=== PATIENT | male | born 1980 | race African-American/Black ===

== ENCOUNTER 2021-09-29 12:12 | Emergency (ER) | payer BC, OTHER ==
[2021-09-30 15:39] LABS: SARS-CoV-2 PCR by NAA Not Detected (NotDetected)
== END 2021-09-29 13:53 | disposition home or self-care (01) ==
LOC: CSHERS 12:12
DX: J06.9 Acute upper respiratory infection, unspecified (principal); Z20.822 Contact with and (suspected) exposure to COVID-19; I10 Essential (primary) hypertension
CPT/HCPCS: 87804; 99283; U0003; U0005

== ENCOUNTER 2021-10-02 12:27 | Emergency (ER) | payer OTHER ==
[2021-10-02] MEDS ORDERED: Ibuprofen 200 MG TAB ONE (13:17)
== END 2021-10-02 13:17 | disposition home or self-care (01) ==
LOC: CSHERS 12:27
DX: H60.91 Unspecified otitis externa, right ear (principal)
CPT/HCPCS: 99283

== ENCOUNTER 2021-10-03 12:48 | Emergency (ER) | payer BC, OTHER ==
[2021-10-03 14:39] LABS: Bilirubin Neg (Negative); Blood, Urine 250 (Negative); Clarity Cloudy (Clear); Glucose, Urine (Dipstick) 50 mg/dL (Negative); Ketone, Urine 5 mg/dL (Negative); Leukocyte 100 (Negative); Nitrite Negative (Negative); Protein, Urine (Dipstick) 30 mg/dl (Neg-Trace)
[2021-10-03 14:55] LABS: Squamous Epithelial 0-3 HPF (0-3)
[2021-10-03 14:56] LABS: Bacteria/HPF Rare-Few HPF (None Seen)
[2021-10-03 15:43] LABS: #Basophils 0.1 10x3/uL (0.0-0.2); #Eosinphils 0.2 10x3/uL (0.0-0.5); #Monocytes 1.5 10x3/uL (0.0-1.1); %Basophils 0.3 % (0.0-2.0); %Eosinophils 1.2 % (0.0-6.0); %Lymphocytes 15.2 % (18.0-47.0); %Monocytes 9.1 % (0.0-10.0); %Neutrophils 73.8 % (40.0-75.0); Hemoglobin 14.2 g/dL (13.5-17.5); Mean Corpuscular HGB CONC 31.9 g/dL (32.0-36.0); Mean Corpuscular Hemoglobin 26.8 pg (27.0-33.0); Mean Platelet Volume 9.2 fl (7.4-10.4); Platelet Count 366 10x3/uL (150-450); RBC Distribution Width 13.8 % (11.5-14.5); White Blood Cell (WBC) Count 16.2 10x3/uL (3.5-10.5)
[2021-10-03 15:55] LABS: ALT (SGPT) 29 U/L (8-55); AST (SGOT) 23 U/L (5-34); Albumin 4.6 g/dL (3.5-5.0); Alkaline Phosphatase 75 U/L (40-110); Anion Gap 14 mmol/L (10-20); BUN (Urea Nitrogen) 13 mg/dL (8.9-20.6); Bilirubin, Total 0.5 mg/dL (0.2-1.2); Calc. Creatinine Clearance 0 mL/min (70-130); Calcium 9.6 mg/dL (7.8-10.44); Carbon Dioxide 25 mmol/L (22-29); Chloride 103 mmol/L (98-107); Globulin 4.2 g/dL (2.4-3.5); Glucose 107 mg/dL (70-105); Potassium 3.9 mmol/L (3.5-5.1); Protein, Total 8.8 g/dL (6.0-8.3); Sodium 138 mmol/L (136-145)
[2021-10-03] MEDS ORDERED: Ondansetron PF 4 MG/2 ML Vial ONE (16:04)
[2021-10-03] MEDS ORDERED: Ketorolac Tromethamine 30 MG/ML VIAL ONE (16:36)
== END 2021-10-03 18:16 | disposition home or self-care (01) ==
LOC: CSHERS 12:48
DX: R31.9 Hematuria, unspecified (principal); N20.0 Calculus of kidney; I10 Essential (primary) hypertension
CPT/HCPCS: 74176; 80053; 81003; 81015; 85025; 87086; 96374; 96375; J1885; J2405

== ENCOUNTER 2022-11-23 09:30 | Emergency (ER) | payer MEDICARE, OTHER ==
[2022-11-23] MEDS ORDERED: Dexamethasone 10 MG/ML VIAL ONE (10:29)
== END 2022-11-23 12:41 | disposition home or self-care (01) ==
LOC: CSHERS 09:30
DX: J02.8 Acute pharyngitis due to other specified organisms (principal); B34.9 Viral infection, unspecified; I10 Essential (primary) hypertension; E11.9 Type 2 diabetes mellitus without complications; Z79.899 Other long term (current) drug therapy
CPT/HCPCS: 87081; 87430; 99283; J1100

== ENCOUNTER 2023-01-19 09:59 | Emergency (ER) | payer OTHER ==
[2023-01-19] MEDS ORDERED: Morphine 4 MG/ML VIAL ONE (10:35)
[2023-01-19] MEDS ORDERED: Ketorolac Tromethamine 30 MG/ML VIAL ONE (10:36)
[2023-01-19] MEDS ORDERED: Ondansetron PF 4 MG/2 ML Vial ONE (10:36)
[2023-01-19 11:06] LABS: #Eosinphils 0.2 10x3/uL (0.0-0.5); #Monocytes 0.5 10x3/uL (0.0-1.1); #Neutrophils 6.1 10x3/uL (1.5-8.4); %Basophils 0.3 % (0.0-2.0); %Eosinophils 1.8 % (0.0-6.0); %Lymphocytes 24.2 % (18.0-47.0); %Monocytes 5.9 % (0.0-10.0); %Neutrophils 67.4 % (40.0-75.0); Hemoglobin 13.6 g/dL (13.5-17.5); Mean Corpuscular HGB CONC 32.9 g/dL (32.0-36.0); Mean Corpuscular Hemoglobin 27.1 pg (27.0-33.0); Mean Corpuscular Volume 82.3 fl (81.2-95.1); Mean Platelet Volume 9.7 fl (7.4-10.4); Platelet Count 326 10x3/uL (150-450); RBC Distribution Width 14.8 % (11.5-14.5); Red Blood Cell (RBC) Count 5.02 10x6/uL (4.32-5.72)
[2023-01-19 11:25] LABS: ALT (SGPT) 27 U/L (8-55); AST (SGOT) 16 U/L (5-34); Albumin 4.1 g/dL (3.5-5.0); Alkaline Phosphatase 66 U/L (40-110); Anion Gap 16 mmol/L (10-20); BUN (Urea Nitrogen) 15 mg/dL (8.9-20.6); Bilirubin, Total 0.7 mg/dL (0.2-1.2); Calc. Creatinine Clearance 0 mL/min (70-130); Calcium 8.8 mg/dL (7.8-10.44); Carbon Dioxide 22 mmol/L (22-29); Chloride 105 mmol/L (98-107); Estimated GFR 91; Globulin 3.3 g/dL (2.4-3.5); Glucose 144 mg/dL (70-105); Lipase 36 U/L (8-78); Potassium 3.8 mmol/L (3.5-5.1); Protein, Total 7.4 g/dL (6.0-8.3); Sodium 139 mmol/L (136-145)
[2023-01-19 12:53] LABS: Bilirubin Neg (Negative); Blood, Urine 250 (Negative); Glucose, Urine (Dipstick) Normal (Negative); Ketone, Urine 5 mg/dL (Negative); Leukocyte 25 (Negative); Nitrite Negative (Negative); Protein, Urine (Dipstick) 100 mg/dl (Neg-Trace); Specific Gravity, Urine 1.025 (1.005-1.030); Urobilinogen Normal mg/dL (Less than 2)
[2023-01-19 13:15] LABS: Clarity Turbid (Clear)
[2023-01-19] MEDS ORDERED: cefTRIAXone (ROCEPHIN) 500 MG VIAL ONE (13:17)
[2023-01-19 13:19] LABS: RBC/HPF Greater than 50 HPF (0-3)
[2023-01-19 13:21] LABS: Bacteria/HPF 2+ HPF (None Seen)
[2023-01-19 13:26] LABS: Mucous/LPF 2+ LPF (<2+)
== END 2023-01-19 13:20 | disposition home or self-care (01) ==
LOC: CSHERS 09:59
DX: N45.1 Epididymitis (principal); I10 Essential (primary) hypertension; E11.9 Type 2 diabetes mellitus without complications; Z79.899 Other long term (current) drug therapy; Z79.84 Long term (current) use of oral hypoglycemic drugs
CPT/HCPCS: 76870; 80053; 81003; 81015; 83690; 85025; 87086; 93976; 96374; 96375; J0696; J1885; J2270; J2405

== ENCOUNTER 2023-05-11 19:06 | Emergency (ER) | payer OTHER ==
[~2023-05-11 19:06] MED LIST: Iopamidol 300 61% 100 ML VIAL FS ONE
[2023-05-11 19:49] LABS: #Basophils 0.1 10x3/uL (0.0-0.2); #Monocytes 0.7 10x3/uL (0.0-1.1); #Neutrophils 12.3 10x3/uL (1.5-8.4); %Basophils 0.3 % (0.0-2.0); %Eosinophils 0.3 % (0.0-6.0); %Lymphocytes 12.5 % (18.0-47.0); %Monocytes 4.7 % (0.0-10.0); %Neutrophils 81.7 % (40.0-75.0); Hematocrit 43.2 % (38.8-50.0); Hemoglobin 14.3 g/dL (13.5-17.5); Mean Corpuscular HGB CONC 33.1 g/dL (32.0-36.0); Mean Corpuscular Hemoglobin 26.7 pg (27.0-33.0); Mean Corpuscular Volume 80.6 fl (81.2-95.1); Mean Platelet Volume 9.7 fl (7.4-10.4); Platelet Count 391 10x3/uL (150-450); RBC Distribution Width 13.2 % (11.5-14.5); Red Blood Cell (RBC) Count 5.36 10x6/uL (4.32-5.72)
[2023-05-11] MEDS ORDERED: Ondansetron PF 4 MG/2 ML Vial ONE (19:53)
[2023-05-11] MEDS ORDERED: Morphine 4 MG/ML VIAL ONE ×2 (19:53→21:19)
[2023-05-11] MEDS ORDERED: Ketorolac Tromethamine 30 MG/ML VIAL ONE (19:53)
[2023-05-11 20:09] LABS: ALT (SGPT) 21 U/L (8-55); AST (SGOT) 17 U/L (5-34); Albumin 4.4 g/dL (3.5-5.0); Alkaline Phosphatase 76 U/L (40-110); Anion Gap 19 mmol/L (10-20); BUN (Urea Nitrogen) 13 mg/dL (8.9-20.6); Bilirubin, Total 0.6 mg/dL (0.2-1.2); Calc. Creatinine Clearance 0 mL/min (70-130); Calcium 9.3 mg/dL (7.8-10.44); Carbon Dioxide 20 mmol/L (22-29); Chloride 105 mmol/L (98-107); Estimated GFR 61; Globulin 3.8 g/dL (2.4-3.5); Glucose 158 mg/dL (70-105); Lipase 11 U/L (8-78); Potassium 3.6 mmol/L (3.5-5.1); Protein, Total 8.2 g/dL (6.0-8.3); Sodium 140 mmol/L (136-145)
[2023-05-11 20:11] LABS: Bilirubin Neg (Negative); Blood, Urine 250 (Negative); Clarity Clear (Clear); Glucose, Urine (Dipstick) 50 mg/dL (Negative); Ketone, Urine Negative (Negative); Leukocyte Negative (Negative); Nitrite Negative (Negative); Protein, Urine (Dipstick) 30 mg/dl (Neg-Trace); Specific Gravity, Urine 1.025 (1.005-1.030); Urobilinogen Normal mg/dL (Less than 2)
[2023-05-11 20:23] LABS: Bacteria/HPF Rare-Few HPF (None Seen); CAUTI Indications for Culture Dysuria,urgency,freq; RBC/HPF 0-3 HPF (0-3); WBC/HPF 0-3 HPF (0-3)
[2023-05-11 20:25] LABS: Urine Culture Reflex No No
== END 2023-05-11 21:33 | disposition home or self-care (01) ==
LOC: CSHERS 19:06
DX: N20.1 Calculus of ureter (principal); E11.9 Type 2 diabetes mellitus without complications; I10 Essential (primary) hypertension; Z79.84 Long term (current) use of oral hypoglycemic drugs
CPT/HCPCS: 74177; 80053; 81001; 83690; 85025; 96374; 96375; 96376; J1885; J2270; J2405; Q9967

== ENCOUNTER 2023-06-15 02:26 | Emergency (ER) | payer OTHER ==
[2023-06-15] MEDS ORDERED: Ketorolac Tromethamine 30 MG/ML VIAL ONE (03:17)
[2023-06-15] MEDS ORDERED: Ondansetron PF 4 MG/2 ML Vial ONE (03:17)
[2023-06-15 03:37] LABS: #Basophils 0.1 10x3/uL (0.0-0.2); #Eosinphils 0.2 10x3/uL (0.0-0.5); #Monocytes 0.9 10x3/uL (0.0-1.1); #Neutrophils 7.6 10x3/uL (1.5-8.4); %Basophils 0.5 % (0.0-2.0); %Eosinophils 1.5 % (0.0-6.0); %Lymphocytes 23.3 % (18.0-47.0); %Neutrophils 66.3 % (40.0-75.0); Hemoglobin 12.7 g/dL (13.5-17.5); Mean Corpuscular HGB CONC 33.4 g/dL (32.0-36.0); Mean Corpuscular Hemoglobin 27.3 pg (27.0-33.0); Mean Corpuscular Volume 81.5 fl (81.2-95.1); Mean Platelet Volume 9.7 fl (7.4-10.4); Platelet Count 336 10x3/uL (150-450); RBC Distribution Width 13.7 % (11.5-14.5); Red Blood Cell (RBC) Count 4.66 10x6/uL (4.32-5.72); White Blood Cell (WBC) Count 11.5 10x3/uL (3.5-10.5)
[2023-06-15 03:50] LABS: ALT (SGPT) 22 U/L (8-55); AST (SGOT) 14 U/L (5-34); Albumin 4.1 g/dL (3.5-5.0); Alkaline Phosphatase 69 U/L (40-110); Anion Gap 13 mmol/L (10-20); BUN (Urea Nitrogen) 13 mg/dL (8.9-20.6); Bilirubin, Total 0.3 mg/dL (0.2-1.2); Calc. Creatinine Clearance 0 mL/min (70-130); Carbon Dioxide 27 mmol/L (22-29); Chloride 102 mmol/L (98-107); Estimated GFR 71; Globulin 3.2 g/dL (2.4-3.5); Glucose 164 mg/dL (70-105); Lipase 15 U/L (8-78); Magnesium 1.7 mg/dL (1.6-2.6); Potassium 3.6 mmol/L (3.5-5.1); Protein, Total 7.3 g/dL (6.0-8.3); Sodium 138 mmol/L (136-145)
[2023-06-15 04:07] LABS: Bilirubin Neg (Negative); Blood, Urine 250 (Negative); CAUTI Indications for Culture Pelvic or flank pain; Glucose, Urine (Dipstick) Normal (Negative); Ketone, Urine Negative (Negative); Leukocyte 25 (Negative); Nitrite Negative (Negative); Protein, Urine (Dipstick) 30 mg/dl (Neg-Trace); RBC/HPF 21-50 HPF (0-3); Squamous Epithelial 0-3 HPF (0-3); Urobilinogen Normal mg/dL (Less than 2); WBC/HPF 0-3 HPF (0-3)
[2023-06-15 04:08] LABS: Bacteria/HPF Rare-Few HPF (None Seen)
[2023-06-15 04:09] LABS: Urine Culture Reflex No No
[2023-06-15 04:21] LABS: Clarity Clear (Clear)
[2023-06-15] MEDS ORDERED: Morphine 4 MG/ML VIAL ONE (07:44)
== END 2023-06-15 09:42 | disposition home or self-care (01) ==
LOC: CSHERS 02:26
DX: N13.2 Hydronephrosis with renal and ureteral calculous obstruction (principal); I10 Essential (primary) hypertension; E11.9 Type 2 diabetes mellitus without complications; Z79.84 Long term (current) use of oral hypoglycemic drugs; Z79.899 Other long term (current) drug therapy
CPT/HCPCS: 74176; 80053; 81001; 83690; 83735; 85025; 96361; 96374; 96375; J1885; J2270; J2405

== ENCOUNTER 2024-09-29 06:29 | Emergency (ER) | payer MEDICAID, MEDICARE ==
[2024-09-29] MEDS ORDERED: Ibuprofen 200 MG TAB ONE (07:17)
[2024-09-29 08:19] LABS: #Basophils 0.05 10x3/uL (0.0-0.2); #Monocytes 0.73 10x3/uL (0.0-1.1); #Neutrophils 5.54 10x3/uL (1.5-8.4); %Basophils 0.6 % (0.0-2.0); %Eosinophils 2.3 % (0.0-6.0); %Lymphocytes 23.8 % (18.0-47.0); %Monocytes 8.5 % (0.0-10.0); %Neutrophils 64.6 % (40.0-75.0); Hematocrit 42.1 % (38.8-50.0); Hemoglobin 13.6 g/dL (13.5-17.5); Mean Corpuscular HGB CONC 32.3 g/dL (32.0-36.0); Mean Corpuscular Hemoglobin 25.8 pg (27.0-33.0); Mean Corpuscular Volume 79.9 fL (81.2-95.1); Mean Platelet Volume 8.9 fL (7.4-10.4); Platelet Count 455 10x3/uL (150-450); RBC Distribution Width 14.3 % (11.5-14.5); Red Blood Cell (RBC) Count 5.27 10x6/uL (4.32-5.72); White Blood Cell (WBC) Count 8.6 10x3/uL (3.5-10.5)
[2024-09-29 08:31] LABS: ALT (SGPT) 25 U/L (8-55); AST (SGOT) 15 U/L (5-34); Albumin 3.7 g/dL (3.5-5.0); Alkaline Phosphatase 75 U/L (40-110); Anion Gap 16 mmol/L (10-20); BUN (Urea Nitrogen) 15 mg/dL (8.9-20.6); Bilirubin, Total 0.5 mg/dL (0.2-1.2); Calc. Creatinine Clearance 0 mL/min (70-130); Calcium 9.3 mg/dL (7.8-10.44); Carbon Dioxide 24 mmol/L (22-29); Chloride 105 mmol/L (98-107); Estimated GFR 75; Globulin 3.5 g/dL (2.4-3.5); Glucose 145 mg/dL (70-105); Potassium 4.6 mmol/L (3.5-5.1); Protein, Total 7.2 g/dL (6.0-8.3); Sodium 140 mmol/L (136-145)
[2024-09-29 08:34] LABS: Troponin I Less than 0.010 ng/mL (< 0.028)
== END 2024-09-29 08:53 | disposition home or self-care (01) ==
LOC: CSHERS 06:29
DX: J18.9 Pneumonia, unspecified organism (principal); I10 Essential (primary) hypertension
CPT/HCPCS: 71045; 80053; 83880; 84484; 85025; 85379; 93005; 94760